=== PATIENT | male | born 1975 | race Caucasian/White ===

== ENCOUNTER 2019-07-01 19:10 | Emergency (ER) | payer OTHER ==
[~2019-07-01] VITALS: Ht 170.2 cm; Wt 99.8 kg
[2019-07-01] MEDS ORDERED: AZIT250 PO (19:34)
[2019-07-01] MEDS ORDERED: ALBU90OI (19:34)
[2019-07-01] MEDS ORDERED: PRED20 (19:34)
[2019-07-01 19:42] LABS: BASOPHILS ABSOLUTE AUTO 0.01 K/mm3 (0.00-0.23); BASOPHILS PERCENT AUTO 0 % (0-2); EOSINOPHILS ABSOLUTE AUTO 0.01 K/mm3 (0.00-0.68); EOSINOPHILS PERCENT AUTO 0 % (0-6); Hematocrit 46.1 % (37.0-53.0); Hemoglobin 15.5 g/dL (13.5-17.5); IMMATURE GRAN ABSOLUTE AUTO 0.01 K/mm3 (0.00-0.10); IMMATURE GRAN PERCENT AUTO 0 % (0-1); LYMPHOCYTES ABSOLUTE AUTO 0.96 K/mm3 (0.84-5.20); LYMPHOCYTES PERCENT AUTO 15 % (21-46); MONOCYTES ABSOLUTE AUTO 0.66 K/mm3 (0.16-1.47); MONOCYTES PERCENT AUTO 11 % (4-13); Mean Corpuscular HGB 30.9 pg (26.0-34.0); Mean Corpuscular HGB Conc 33.6 g/dL (31.5-36.5); Mean Corpuscular Volume 92 fL (80-100); Mean Platelet Volume 9.6 fL (9.1-12.4); NEUTROPHILS ABSOLUTE AUTO 4.57 K/mm3 (1.96-9.15); NEUTROPHILS PERCENT AUTO 73 % (41-73); Platelet Count 241 K/mm3 (150-400); RDW Coefficient Variation 11.5 % (11.7-14.2); RDW Standard Deviation 39.2 fL (35.1-46.3); Red Blood Cell Count 5.02 M/mm3 (4.30-5.90); White Blood Cell Count 6.22 K/mm3 (4.00-11.30)
[2019-07-01 20:00] LABS: Alanine Aminotransfer (ALT/SGP 47 U/L (12-78); Albumin, Blood 3.9 g/dL (3.4-5.0); Albumin/Globulin Ratio 1.2 (0.8-1.8); Alk Phos 80 U/L (50-136); Anion Gap 5 mmol/L (6-16); Aspartate Aminotrans (AST/SGOT 27 U/L (12-37); Bilirubin, Total 0.3 mg/dL (0.1-1.0); Blood Urea Nitrogen 14 mg/dL (8-24); Bun/Creatinine Ratio 18.2 (12.0-20.0); CO2, Blood 24 mmol/L (21-32); Calcium, Blood 8.6 mg/dL (8.5-10.1); Chloride, Blood 111 mmol/L (98-108); Creatinine, Blood 0.77 mg/dL (0.60-1.20); Globulin, Blood 3.3 g/dL (2.2-4.0); Glomerular Filtration Rate >60 (60-); Glucose, Blood 155 mg/dL (70-99); Potassium, Blood 3.8 mmol/L (3.5-5.5); Sodium, Blood 140 mmol/L (136-145); Total Protein, Blood 7.2 g/dL (6.4-8.2); Troponin I 0.034 ng/mL (0.000-0.040)
== END 2019-07-01 23:28 | disposition home or self-care (01) ==
LOC: ER 19:10
PROVIDERS: Physician Assistant
DX: J20.9 Acute bronchitis, unspecified (principal); Z87.01 Personal history of pneumonia (recurrent); Z79.899 Other long term (current) drug therapy; Z79.52 Long term (current) use of systemic steroids
CPT/HCPCS: 71046; 80053; 84484; 85025; 93005; 93010; 99285-25

== ENCOUNTER → 2022-04-01 | Outpatient (CLI) | payer OTHER ==
[~2022-04-01] MED LIST: ALBU90OI; AZIT250 PO; PRED20
[2022-04-01 12:19] LABS: BASOPHILS ABSOLUTE AUTO 0.03 K/mm3 (0.00-0.23); BASOPHILS PERCENT AUTO 1 % (0-2); EOSINOPHILS ABSOLUTE AUTO 0.07 K/mm3 (0.00-0.68); EOSINOPHILS PERCENT AUTO 2 % (0-6); Hematocrit 46.4 % (37.0-53.0); Hemoglobin 15.8 g/dL (13.5-17.5); IMMATURE GRAN ABSOLUTE AUTO 0.01 K/mm3 (0.00-0.10); IMMATURE GRAN PERCENT AUTO 0 % (0-1); LYMPHOCYTES ABSOLUTE AUTO 1.07 K/mm3 (0.84-5.20); LYMPHOCYTES PERCENT AUTO 27 % (21-46); MONOCYTES ABSOLUTE AUTO 0.46 K/mm3 (0.16-1.47); MONOCYTES PERCENT AUTO 11 % (4-13); Mean Corpuscular HGB 31.2 pg (26.0-34.0); Mean Corpuscular HGB Conc 34.1 g/dL (31.5-36.5); Mean Corpuscular Volume 92 fL (80-100); Mean Platelet Volume 9.7 fL (9.1-12.4); NEUTROPHILS ABSOLUTE AUTO 2.38 K/mm3 (1.96-9.15); NEUTROPHILS PERCENT AUTO 59 % (41-73); Platelet Count 214 K/mm3 (150-400); RDW Coefficient Variation 12.2 % (11.7-14.2); Red Blood Cell Count 5.07 M/mm3 (4.30-5.90); White Blood Cell Count 4.02 K/mm3 (4.00-11.30)
[2022-04-01 12:28] LABS: Albumin, Blood 4.1 g/dL (3.4-5.0); Albumin/Globulin Ratio 1.3 (0.8-1.8); Bilirubin, Total 0.8 mg/dL (0.1-1.0); Calcium, Blood 8.7 mg/dL (8.5-10.1); Creatinine, Blood 0.86 mg/dL (0.60-1.20); Globulin, Blood 3.2 g/dL (2.2-4.0); Potassium, Blood 4.4 mmol/L (3.5-5.5); Total Protein, Blood 7.3 g/dL (6.4-8.2)
== END | disposition home or self-care (01) ==
LOC: LAB SHORT 12:14 → LAB 12:14
PROVIDERS: Physician Assistant
DX: R10.32 Left lower quadrant pain (principal)
CPT/HCPCS: 80053; 85025

== ENCOUNTER 2024-09-23 16:29 | Inpatient (IN) | payer OTHER ==
[~2024-09-23] VITALS: Ht 170.2 cm; Wt 110.0 kg
[2024-09-23 10:50] LABS: BASOPHILS ABSOLUTE AUTO 0.03 K/mm3 (0.00-0.23); BASOPHILS PERCENT AUTO 1 % (0-2); EOSINOPHILS ABSOLUTE AUTO 0.14 K/mm3 (0.00-0.68); EOSINOPHILS PERCENT AUTO 4 % (0-6); Hematocrit 44.1 % (37.0-53.0); Hemoglobin 15.2 g/dL (13.5-17.5); IMMATURE GRAN PERCENT AUTO 0 % (0-1); LYMPHOCYTES ABSOLUTE AUTO 1.06 K/mm3 (0.84-5.20); LYMPHOCYTES PERCENT AUTO 30 % (21-46); MONOCYTES ABSOLUTE AUTO 0.39 K/mm3 (0.16-1.47); MONOCYTES PERCENT AUTO 11 % (4-13); Mean Corpuscular HGB 31.9 pg (26.0-34.0); Mean Corpuscular HGB Conc 34.5 g/dL (31.5-36.5); Mean Corpuscular Volume 93 fL (80-100); Mean Platelet Volume 9.4 fL (9.1-12.4); NEUTROPHILS ABSOLUTE AUTO 1.92 K/mm3 (1.96-9.15); NEUTROPHILS PERCENT AUTO 54 % (41-73); Platelet Count 211 K/mm3 (150-400); RDW Coefficient Variation 11.9 % (11.7-14.2); RDW Standard Deviation 40.9 fL (35.1-46.3); Red Blood Cell Count 4.76 M/mm3 (4.30-5.90); White Blood Cell Count 3.54 K/mm3 (4.00-11.30)
[2024-09-23 11:09] LABS: Albumin/Globulin Ratio 1.3 (0.8-1.8); Bilirubin, Total 0.6 mg/dL (0.1-1.0); Bun/Creatinine Ratio 14.8 (12.0-20.0); Calcium, Blood 8.6 mg/dL (8.5-10.1); Creatinine, Blood 0.74 mg/dL (0.60-1.20); Globulin, Blood 3.1 g/dL (2.2-4.0); Potassium, Blood 4.1 mmol/L (3.5-5.5); Total Protein, Blood 7.1 g/dL (6.4-8.2)
[~2024-09-23 16:29] MED LIST changes: -ALBU90OI; +ALBU90OI INH; +Aspirin 325 MG Tab PO ONE; +Clopidogrel Bisulfate 75 MG Tab PO ONE; +FLU VACC TS2024-25(6MOS UP)/PF 45 MCG/0.5 ML SYRINGE IM SCH; +Lactated Ringer's 1,000 ML IV SCH; +Ondansetron 4 MG TAB PO PRN
[2024-09-23 17:00] VITALS: BP 109/95
--- NOTE | 2024-09-23 17:27 | NUR ---
MD AT BEDSIDE: MD LOUIS AT BEDSIDE TALKING WITH PATIENT AND FAMILY. PATIENT AWARE HE HAD A STROKE, SHOWED HIM MRI PHOTOS AND THE PLAN WILL BE TO CONTINUE ASPIRIN,PLAVIX AND TO BE SEEN BY PHYSICAL THERAPY,OCCUPATIONAL THERAPY AND SEE WHAT THEIR RECCOMENDATIONS ARE FOR DISCHARGE WITHIN A FEW DAYS.
--- NOTE | 2024-09-23 18:13 | NUR ---
SHIFT SUMMARY: PATIENT IS ALERT AND ORIETNED X4 AND ACTIVE IN HIS CARE, IS ABLE TO MAKE NEEDS KNOWN AND USES CALL LIGHT APPROIATELY. SATTING >92% ON ROOM AIR, EVEN AND UNLABORED RESPIRATONS. ON TELE SHOWING SINUS WITH RATE IN 70'S. NEURO CHECK DONE UPON ARRIVAL AND PATIENT HAS EQUAL STRENTH, SPEECH IS STILL A LITTLE SLURRED BUT HAS IMPROVED SINCE ARRIVAL. PATIENT IS REGULAR DIET AND WAS GIVEN DINNER, DID GREAT WITHOUT ANY TROUBLES EATING. FAMILY WAS AT BEDISDE. PATIETN TO BE SEEN BY SPEECH, PHYSICAL THERAPY, OCCUPATIONAL THERAPY PRIOR TO DISCHARGE FOR RECCOMENDATIONS. PATIENT AWARE THAT DISCHARGE WILL COME IN A FEW DAYS. WILL BE STAYING OVERNIGHT. THIS RN WILL CONTINUE TO MONITOR UNTIL SHIFT CHANGE AND MILKING MACHINE OPERATOR RN ASSUMES CARE.
[2024-09-23 20:31] VITALS: BP 119/66
[2024-09-24 00:26] VITALS: BP 108/62
[2024-09-24 04:19] VITALS: BP 122/92
[2024-09-24 04:49] LABS: BASOPHILS ABSOLUTE AUTO 0.03 K/mm3 (0.00-0.23); BASOPHILS PERCENT AUTO 1 % (0-2); EOSINOPHILS ABSOLUTE AUTO 0.16 K/mm3 (0.00-0.68); EOSINOPHILS PERCENT AUTO 4 % (0-6); Hematocrit 43.3 % (37.0-53.0); Hemoglobin 15.1 g/dL (13.5-17.5); IMMATURE GRAN PERCENT AUTO 0 % (0-1); LYMPHOCYTES ABSOLUTE AUTO 1.28 K/mm3 (0.84-5.20); LYMPHOCYTES PERCENT AUTO 29 % (21-46); MONOCYTES PERCENT AUTO 9 % (4-13); Mean Corpuscular HGB 31.9 pg (26.0-34.0); Mean Corpuscular HGB Conc 34.9 g/dL (31.5-36.5); Mean Corpuscular Volume 91 fL (80-100); Mean Platelet Volume 9.4 fL (9.1-12.4); NEUTROPHILS ABSOLUTE AUTO 2.49 K/mm3 (1.96-9.15); NEUTROPHILS PERCENT AUTO 57 % (41-73); Platelet Count 201 K/mm3 (150-400); RDW Coefficient Variation 11.9 % (11.7-14.2); RDW Standard Deviation 39.7 fL (35.1-46.3); Red Blood Cell Count 4.74 M/mm3 (4.30-5.90); White Blood Cell Count 4.36 K/mm3 (4.00-11.30)
[2024-09-24 05:16] LABS: Albumin, Blood 3.6 g/dL (3.4-5.0); Albumin/Globulin Ratio 1.2 (0.8-1.8); Bilirubin, Total 0.6 mg/dL (0.1-1.0); Bun/Creatinine Ratio 15.2 (12.0-20.0); Calcium, Blood 8.5 mg/dL (8.5-10.1); Creatinine, Blood 0.72 mg/dL (0.60-1.20); Potassium, Blood 4.1 mmol/L (3.5-5.5); Total Protein, Blood 6.6 g/dL (6.4-8.2)
--- NOTE | 2024-09-24 05:40 | NUR ---
SHIFT SUMMARY PT REMAINS A&OX4. VSS ON RA >92%. REMAINS ON TELE NSR IN 70s-80s. PTS NEURO STATUS HAS IMPROVED THROUGHOUT NIGHT. NO SLURRED SPEECH OR DROOPS NOTED. NO VISION CHANGES THROUGHOUT NIGHT. PTs LEFT SIDED ARM AND LEG CONTINUE TO BE WEAK HOWEVER ONLY DRIFT AND DO NOT DROP TO THE BED DURING ASSESSMENT. PT USING URINAL AT BEDSIDE THROUGHOUT THE NIGHT WITH ASSISTANCE OF STAFF AND AT BEDSIDE. PT C/O MILD PAIN IN LLQ ABDOMEN HOWEVER REPORTS THAT THIS IS COMMON D/T COLON ISSUES. PT RESTING COMFORTABLY THROUGHOUT NIGHT. NO FURTHER QUESTIONS OR CONCERNS AT THIS TIME. WILL REPORT TO ONCOMING NURSE.
[2024-09-24 07:59] VITALS: BP 127/88
--- NOTE | 2024-09-24 08:00 | NUR ---
[place] of care: He is oriented x4 with sensation & mobility intact in all 4 extremities. Pupils equal/reactive. No deficits noted. Does complain of some residual dizziness after closing/opening his eyes that resolves on its own. All vital signs stable on room air. Ambulating in room independently. Good appetite. BM this morning & voiding. PIV x2 in place. He is eager to discharge. Awaiting echocardiogram. Will continue to monitor.
[2024-09-24] MEDS ORDERED: Atorvastatin 40 MG Tab PO SCH (09:00)
[2024-09-24] MEDS ORDERED: Aspirin 81 MG Chew PO SCH (09:00)
[2024-09-24] MEDS ORDERED: Enoxaparin 40 MG/0.4 ML SYR SC SCH (09:00)
[2024-09-24] MEDS ORDERED: Clopidogrel Bisulfate 75 MG Tab PO SCH (09:00)
[2024-09-24] MEDS ORDERED: ATOR40TA PO (11:05)
[2024-09-24] MEDS ORDERED: CLOP75 PO (11:05)
[2024-09-24] MEDS ORDERED: ASPI81CH PO (11:05)
[2024-09-24] MEDS ORDERED: LOSA25 PO (11:06)
[2024-09-24 11:36] VITALS: BP 129/80
[2024-09-24 13:39] VITALS: BP 131/84
--- NOTE | 2024-09-24 14:11 | NUR ---
Discharge paperwork reviewed with patient & & education provided. All questions addressed. PIV x2 removed. Vital signs stable. See flowsheet.
== END 2024-09-24 17:24 | disposition home or self-care (01) | DRG 65 ==
LOC: ER 16:29 → PCU 16:51
PROVIDERS: Physician Assistant; ADMIT Student in an Organized Health Care Education/Training Program
DX: I63.81 Other cerebral infarction due to occlusion or stenosis of small artery (principal); G81.94 Hemiplegia, unspecified affecting left nondominant side; E66.9 Obesity, unspecified; R47.1 Dysarthria and anarthria; R47.81 Slurred speech; R29.704 NIHSS score 4; R29.810 Facial weakness; R26.0 Ataxic gait; Z79.52 Long term (current) use of systemic steroids
CPT/HCPCS: 36415; 70450; 70496; 70498; 70551; 80053; 85025; 93005; 93010; 93306; 97112; 97116; 97162; A9270; J1650; Q9967

== ENCOUNTER 2024-12-16 12:50 | Emergency (ER) | payer OTHER ==
[~2024-12-16] VITALS: Ht 170.2 cm; Wt 104.3 kg
[~2024-12-16 12:50] MED LIST changes: +ASPI81CH PO; +ATOR40TA PO; -Aspirin 325 MG Tab PO ONE; +CLOP75 PO; -Clopidogrel Bisulfate 75 MG Tab PO ONE; -FLU VACC TS2024-25(6MOS UP)/PF 45 MCG/0.5 ML SYRINGE IM SCH; +LOSA25 PO; -Lactated Ringer's 1,000 ML IV SCH; -Ondansetron 4 MG TAB PO PRN
[2024-12-16 13:11] LABS: BASOPHILS ABSOLUTE AUTO 0.04 K/mm3 (0.00-0.23); BASOPHILS PERCENT AUTO 1 % (0-2); EOSINOPHILS ABSOLUTE AUTO 0.19 K/mm3 (0.00-0.68); EOSINOPHILS PERCENT AUTO 4 % (0-6); Hematocrit 43.3 % (37.0-53.0); Hemoglobin 14.8 g/dL (13.5-17.5); IMMATURE GRAN ABSOLUTE AUTO 0.01 K/mm3 (0.00-0.10); IMMATURE GRAN PERCENT AUTO 0 % (0-1); LYMPHOCYTES ABSOLUTE AUTO 1.23 K/mm3 (0.84-5.20); LYMPHOCYTES PERCENT AUTO 27 % (21-46); MONOCYTES ABSOLUTE AUTO 0.48 K/mm3 (0.16-1.47); MONOCYTES PERCENT AUTO 10 % (4-13); Mean Corpuscular HGB 31.2 pg (26.0-34.0); Mean Corpuscular HGB Conc 34.2 g/dL (31.5-36.5); Mean Corpuscular Volume 91 fL (80-100); Mean Platelet Volume 9.3 fL (9.1-12.4); NEUTROPHILS ABSOLUTE AUTO 2.69 K/mm3 (1.96-9.15); NEUTROPHILS PERCENT AUTO 58 % (41-73); Platelet Count 204 K/mm3 (150-400); RDW Standard Deviation 40.1 fL (35.1-46.3); Red Blood Cell Count 4.75 M/mm3 (4.30-5.90); White Blood Cell Count 4.64 K/mm3 (4.00-11.30)
[2024-12-16 13:30] LABS: Albumin/Globulin Ratio 1.2 (0.8-1.8); Bilirubin, Total 0.8 mg/dL (0.1-1.0); Bun/Creatinine Ratio 19.2 (12.0-20.0); Calcium, Blood 8.7 mg/dL (8.5-10.1); Creatinine, Blood 0.73 mg/dL (0.60-1.20); Globulin, Blood 3.3 g/dL (2.2-4.0); Potassium, Blood 3.8 mmol/L (3.5-5.5); Total Protein, Blood 7.3 g/dL (6.4-8.2)
[2024-12-16] MEDS ORDERED: NS 1,000 ML IV SCH (14:10)
[2024-12-16] MEDS ORDERED: DiphenhydrAMINE HCl 50 MG/ML 1ML Vial IV ONE (14:10)
[2024-12-16] MEDS ORDERED: Prochlorperazine Edisylate 10 mg Vial IV ONE (14:10)
[2024-12-16] MEDS ORDERED: Dexamethasone Sod Phos 10 MG/ML 1ML VIAL IV ONE (14:10)
[2024-12-16] MEDS ORDERED: Acetaminophen 500 MG Tab PO ONE (14:10)
[2024-12-16] MEDS ORDERED: Metoclopramide HCl 5MG / ML 2ML Vial IV ONE (15:45)
[2024-12-16] MEDS ORDERED: Ketorolac Tromethamine 30mg Vial IV ONE (15:45)
[2024-12-16 17:15] VITALS: BP 118/72
== END 2024-12-16 17:47 | disposition home or self-care (01) ==
LOC: ER 12:50
PROVIDERS: Physician Assistant
DX: R51.9 Headache, unspecified (principal); R42 Dizziness and giddiness; Z79.82 Long term (current) use of aspirin; Z79.899 Other long term (current) drug therapy; Z86.73 Personal history of transient ischemic attack (TIA), and cerebral infarction without residual deficits
CPT/HCPCS: 70450; 70496; 70498; 80053; 85025; 93005; 93010; 96374-59; 96375-59; 99284-25; A9270; J0780; J1100; J1200; J1885; J2765; J7030; Q9967